=== PATIENT | female | born 1985 ===

== ENCOUNTER → 2018-09-21 22:10 | Outpatient (REF) | payer OTHER, SELFPAY ==
[2018-09-21 22:56] LABS: Add Manual Diff / Slide Review NO; Basophils Percent Auto 0.9 % (0-2); Eosinophils Percent Auto 7.5 % (2-4); Hematocrit 39.8 % (36-46); Hemoglobin 13.6 g/dL (12.0-16.0); Lymphocytes Percent Auto 29.8 % (25-40); Mean Corpuscular HGB Conc 34.2 % (30-36); Mean Corpuscular Hemoglobin 31.9 PG (26-34); Mean Corpuscular Volume 93.2 fL (80-100); Neutrophils Absolute Auto 2800 /uL (3000-5900); Neutrophils Percent Auto 53.8 % (50-75); Platelet Count 244 X10^3/uL (150-400); Red Blood Cell Count 4.26 X10^6/uL (4.0-5.2); Red Cell Distribution Width 12.5 % (11.6-14.8); White Blood Cell Count 5.2 X10^3/uL (4.5-11.0)
[2018-09-21 23:13] LABS: Erythrocyte Sedimentation Rate 5 MM/HR (0-20)
[2018-09-22 01:47] LABS: Alanine Aminotransferase 23 IU/L (9-52); Albumin 4.2 g/dL (3.5-5.0); Albumin Globulin Ratio 1.6 (1.0-2.8); Alkaline Phosphatase 58 U/L (38-126); Aspartate Aminotransferase 20 IU/L (14-36); BUN Creatinine Ratio 14.3 (6-22); Bilirubin Total 0.5 mg/dL (0.2-1.3); Blood Urea Nitrogen 10 mg/dL (7-17); Calcium 9.2 mg/dL (8.4-10.2); Carbon Dioxide 26 mmol/L (22-32); Chloride 103 mmol/L (98-107); Estimated Glomerular Filt Rate > 60.0 mL/min (>60); Globulin 2.6 g/dL (1.7-4.1); Glucose 76 mg/dL (70-100); HEMOLYSIS < 15 (0-50); Potassium 4.4 mmol/L (3.4-5.1); Sodium 142 mmol/L (137-145); Total Protein 6.8 g/dL (6.3-8.2)
[2018-09-22 01:49] LABS: C-Reactive Protein Quant < 0.5 mg/dL (<1.0)
[2018-09-22 02:00] LABS: Iron 157 ug/dL (37-170)
[2018-09-22 02:19] LABS: Free T4, Direct Thyroxine 1.18 ng/dL (0.78-2.19)
[2018-09-22 02:29] LABS: Ferritin 17.5 ng/mL (6.27-137)
[2018-09-22 02:33] LABS: Thyroid Stimulating Hormone 1.09 uIU/mL (0.47-4.68)
[2018-09-24 13:53] LABS: EBV Virus IgM Ab < 36.00 U/mL (< 36.00); EVB Early IgG < 9.00 U/mL (< 9.00)
[2018-09-24 13:56] LABS: CMV IgG Antibody < 0.60 U/mL (< 0.60); CMV IgM Antibody < 30.00 AU/mL (< 30.00)
[2018-09-25 14:23] LABS: Triiodothyronine T3 Reverse 11 ng/dL (8-25)
[2018-09-26 15:14] LABS: C.albicans IgA 1.2; C.albicans IgG 0.9
== END ==
LOC: LAB 22:10
PROVIDERS: Visit Provider Naturopath
DX: R53.83 Other fatigue (principal); M06.9 Rheumatoid arthritis, unspecified
CPT/HCPCS: 80053; 82728; 83540; 84439; 84443; 84482; 85025; 85651; 86140; 86628; 86644; 86645; 86663; 86664; 86665